=== PATIENT | male | born 1945 | race African-American/Black ===

== ENCOUNTER → 2017-08-05 | Day surgery (SDC) | payer MEDICARE, OTHER ==
[~2017-08-05] MED LIST: ALLO300T PO; AMLO10TA2 PO; ATOR20TA58 PO; IV RINGERS SOLUTION,LACTATED 1,000 ML BAG. IV ONE; IV RINGERS SOLUTION,LACTATED 1,000 ML IV ONE; LIDOCAINE 2% PF Vial for OR 5 ML VIAL. ONE; PROPOFOL 40 ML IV ONE; VALS320T2 PO
[2017-08-05 13:15] VITALS: BP 135/76
== END | disposition home or self-care (01) ==
LOC: SURG 09:52
PROVIDERS: ATTEND Internal Medicine Gastroenterology
DX: K64.8 Other hemorrhoids (principal); K57.30 Diverticulosis of large intestine without perforation or abscess without bleeding; Z72.89 Other problems related to lifestyle
CPT/HCPCS: 45378; J2704; J7120; J2001

== ENCOUNTER → 2017-08-10 | Outpatient (CLI) | payer MEDICARE, OTHER ==
[2017-08-05 13:15] VITALS: BP 135/76
[~2017-08-10] MED LIST changes: -IV RINGERS SOLUTION,LACTATED 1,000 ML BAG. IV ONE; -IV RINGERS SOLUTION,LACTATED 1,000 ML IV ONE; -LIDOCAINE 2% PF Vial for OR 5 ML VIAL. ONE; -PROPOFOL 40 ML IV ONE
[2017-08-10 15:14] LABS: FECAL OB PT NEGATIVE (NEG)
[2017-08-10 15:15] LABS: FECAL OB PT NEGATIVE (NEG)
[2017-08-10 15:15] LABS: FECAL OB PT NEGATIVE (NEG)
== END | disposition home or self-care (01) ==
LOC: LAB 13:33
PROVIDERS: ATTEND Internal Medicine Gastroenterology
DX: R19.5 Other fecal abnormalities (principal)
CPT/HCPCS: 82274

== ENCOUNTER → 2018-12-13 | Outpatient (CLI) | payer MEDICARE, OTHER ==
[2017-08-05 13:15] VITALS: BP 135/76
[~2018-12-13] MED LIST changes: -AMLO10TA2 PO; +AMLO10TA8 PO
== END | disposition home or self-care (01) ==
LOC: LAB 12:38
PROVIDERS: ATTEND Urology
DX: R97.20 Elevated prostate specific antigen [PSA] (principal)
CPT/HCPCS: 84153; G0103